=== PATIENT | male | born 2000 | race Two or more races ===

== ENCOUNTER 2024-07-04 19:20 | Emergency (ER) | payer MEDICAID ==
[~2024-07-04] VITALS: Ht 152.4 cm; Wt 68.9 kg
[2024-07-04] MEDS ORDERED: PANT40TA2 PO (21:22)
[2024-07-04] MEDS ORDERED: MAG HYDROX/AL HYDROX/SIMETH 30 ML UDC ONE (21:27)
[2024-07-04] MEDS ORDERED: LIDOCAINE VISCOUS 2% UD 15 ML UDC ONE (21:32)
[2024-07-04] MEDS: MAG HYDROX/AL HYDROX/SIMETH 30 ML UDC PO ONE (21:32)
[2024-07-04] MEDS: LIDOCAINE VISCOUS 2% UD 15 ML UDC MM ONE (21:32)
[2024-07-04 21:44] VITALS: BP 130/80; TEMP 98; O2SAT 98
== END 2024-07-04 21:45 | disposition home or self-care (01) ==
LOC: ER 19:24
DX: R10.11 Right upper quadrant pain (principal)